=== PATIENT | female | born 1995 | race African-American/Black ===

== ENCOUNTER 2016-08-15 09:31 | Emergency (ER) | payer SELFPAY ==
[~2016-08-15] VITALS: Ht 167.6 cm; Wt 61.0 kg
[2016-08-15] MEDS ORDERED: ONDANSETRON HCL 4MG/2ML VIAL IV ONE (11:30)
[2016-08-15] MEDS ORDERED: SODIUM CHLORIDE 0.9% 1,000 ML IV ONE (11:30)
[2016-08-15] MEDS ORDERED: MORPHINE SULFATE 2 MG/ML CPJ (NOT FOR IM USE) IV ONE (11:30)
[2016-08-15 12:11] LABS: CLARITY URINE CLEAR (CLEAR); COLOR URINE YELLOW (YELLOW); GLUCOSE URINE NEGATIVE (NEGATIVE); KETONES URINE 1+ (NEGATIVE); LEUKOCYTE ESTERASE URINE NEGATIVE (NEGATIVE); NITRITE URINE NEGATIVE (NEGATIVE); OCCULT BLOOD URINE 3+ (NEGATIVE); PROTEIN URINE NEGATIVE (NEGATIVE); SPECIFIC GRAVITY URINE 1.026 (1.005-1.030)
[2016-08-15 12:27] LABS: BACTERIA URINE 1+; RBC URINE 0-2 /hpf (0-2); SQUAMOUS EPITHELIAL CELL URINE 2+ /lpf (RARE/1+)
[2016-08-15 12:28] LABS: MUCUS URINE 1+ /lpf (< = 2+)
[2016-08-15 12:31] LABS: HEMATOCRIT. 35.5 % (36.0-48.0); HEMOGLOBIN. 12.3 g/dL (12.0-16.0); MEAN CORPUSCULAR HEMOGLOBIN 30.6 pg (28.0-32.0); MEAN CORPUSCULAR HGB CONC 34.6 g/dL (31.0-37.0); MEAN CORPUSCULAR VOLUME 88.5 fL (81.0-99.0); PLATELET 208 x1000/uL (130-400); RED BLOOD CELL COUNT 4.01 mill/uL (4.2-5.4); RED CELL DISTRIBUTION WIDTH 13.1 % (11.6-14.6); WHITE BLOOD COUNT 10.2 x1000/uL (4.5-11.0)
[2016-08-15 12:38] LABS: CHLORIDE 108 mEq/L (98-107); INDEX HEMOLYSI 1 (1-3); INDEX ICTERIC 1 (1-4); INDEX LIPEMIC 1 (1-3)
[2016-08-15 12:47] LABS: ALANINE AMINOTRANSFERASE 19 IU/L (13-61); ALBUMIN 4.1 g/dL (3.4-5.0); ANION GAP 13; CALCIUM 8.5 mg/dL (8.5-10.1); CARBON DIOXIDE 26 mEq/L (21-32); UREA NITROGEN BLOOD 11 mg/dL (7-21); eGFR > 60 mL/min (>60)
[2016-08-15 13:28] LABS: PLATELET ESTIMATE NORMAL
[2016-08-15] MEDS ORDERED: IOHEXOL-300 100 ML BOTTLE ONE (14:42)
[2016-08-15] MEDS ORDERED: SODIUM CHLORIDE 0.9% 10ML VIAL ONE (14:42)
[2016-08-15] MEDS ORDERED: ONDANSETRON 4MG ODT PO ONE (15:15)
[2016-08-15] MEDS ORDERED: IBUPROFEN 600MG TABLET PO ONE (15:15)
[2016-08-15 15:22] VITALS: BP 102/63
== END 2016-08-15 16:51 | disposition home or self-care (01) ==
LOC: ER 11:48
DX: R10.9 Unspecified abdominal pain (principal); N39.0 Urinary tract infection, site not specified; K92.0 Hematemesis
CPT/HCPCS: 36415; 74177; 80053; 81001; 81025; 85007; 85027; 96361; 96374; 96375; 99285; A4216; J2270; J2405; J7030; Q0162; Q9967; Z7610